=== PATIENT | female | born 1985 | race Caucasian/White ===

== ENCOUNTER 2024-08-10 12:22 | Emergency (ER) | payer BC ==
[~2024-08-10] VITALS: Ht 149.9 cm; Wt 61.8 kg
[2024-08-10 12:34] VITALS: BP 100/39; PULSE 86; RESP 18; TEMP 97.9; O2SAT 99
[2024-08-10] MEDS ORDERED: MORP15TA70 PO (12:34)
== END 2024-08-10 13:17 | disposition left against medical advice (07) ==
LOC: EMS 12:26
DX: R55 Syncope and collapse (principal); Z53.21 Procedure and treatment not carried out due to patient leaving prior to being seen by health care provider